=== PATIENT | male | born 1970 | race Caucasian/White ===

== ENCOUNTER 2024-02-15 11:24 | Outpatient (AMB) | payer OTHER, SELFPAY ==
--- NOTE | 2024-02-15 11:25 | A.OFFVIS_ITS ---
Vital Signs 02/15/24 11:27 Height 6 ft 1 in Weight 250 lb BMI 33.0 BP 152/82 H Blood Pressure Location Lt brachial Position Sitting Respiration 16 Pulse 102 H Pulse Source Pulse Oximeter Pulse Oximetry (%) 98 Oxygen Delivery Method Room Air Intake Visit Reasons: Back pain radiating down to his leg Allergies environmental allergies Allergy (Verified 02/15/24 19:07) Unknown Seasonal Allergies Allergy (Verified 02/15/24 19:07) Unknown bee stings Allergy (Unknown, Uncoded 02/15/24 19:07) Unknown Medication List - Last Reconciled 02/15/24 by NATALEE Oneill acetaminophen 1,000 mg PO Q8H PRN bupropion HCl SR (Wellbutrin SR) 150 mg PO BID cyclobenzaprine 10 mg PO TID dextroamphetamine-amphetamine 20 mg (Adderall) 20 mg PO DAILY diclofenac sodium 50 mg PO Q12H PRN diclofenac sodium 1% (Arthritis Pain (diclofenac)) 2 grams topical QID trazodone 200 mg PO BEDTIME HPI HPI Back pain radiating down to his leg: Details: Patient is a pleasant 53-year-old male presents today for initial evaluation of low back pain with radiation into left lower extremity for 2 months. He reports extensive surgical history for left Achilles tendon tear reconstructive and revision surgeries x4 through [facility]. Most recent surgery was on 05/16/23 left achilles surgery with toe tendon transfer. There is active Worker's comp case since 09/20/21 for this through his Orthopedic provider. Patient reports since left ankle surgeries, he developed uneven gait which he believes contributes to his current symptoms. Reports chronic left lower leg neuralgia with parasthesias since ankle surgeries. Back pain radiates into his left buttock, thigh, groin, posterior thigh and knee with associated numbness and tingling. Reports intermittent numbness and tingling. Pain increases with walking, weight bearing, changing positions from seated to standing, prolonged sitting, climbing stairs, movements, bending, and cold weather changes. Per referral notes, 2 views of lumbosacral spine reveals spondylosis and multilevel anterior osteophytes along the vertebrae. No spondylolisthesis. T12-L1 osteoarthritis. Patient has tried and failed extensive medical management to control his symptoms and improve functioning including gabapentin, oxycodone, tramadol, meloxicam, Voltaren gel, Medrol Oneil, Lyrica, and Flexeril. He was referred for formal physical therapy for lumbar stabilization program but was unable to start due to significant pain. Pain is constant and is most severe at noon, rated at 8/10 and least severe at 0800, rated at 3/10. Patient reports tramadol has been effective last year and allowed him to be less symptomatic and more functional. Pain interferes with his daily activities, ADLs, mobility, sleeping, work, mood, social interactions and quality of life. He has been facing challenges in obtaining medical management for his chronic pain syndromes. Patient is interested in medical and interventional treatments for low back pain and potentially for chronic left ankle pain with previous surgeries. 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 Denies any fever or chills, abdominal or groin pain, weakness, bladder or bowel dysfunction, or saddle anesthesia. Onset: 09/27/21 Location: Lower back pain radiating into left lower extremity Duration: Chronic pain worsening for past 2.5 months Characteristics of symptom or complaint: Throbbing, stabbing, sharp, burning, tingling, radiating, heavy, fearful Aggravating or associated factors: Movements, uneven gait, pronation, ADLs, walking, standing, bending Relieving factors: Rest, changing positions, elevation, medications, heat/cold applications Treatment: PT-attempted, unable due to pain, left ankle surgerie x4, knee scooter [facility] Medical History (Updated 02/15/24 @ 20:12 by NATALEE Oneill) Chronic headaches Degenerative disc disease, cervical PTSD (post-traumatic stress disorder) Tobacco dependence with current use Anxiety Depression Achilles tendon tear ADHD Chronic pain syndrome Surgical History (Updated 02/15/24 @ 19:59 by NATALEE Oneill) H/O Achilles tendon repair Social History (Updated 02/15/24 @ 19:28 by NATALEE Oneill) Household Members: Spouse and Family Housing: House Alcohol intake: former Year quit: 2016 Patient Tobacco Use Status: Current everyday Tobacco user Tobacco use type: Cigarette Cigarettes Per Day: 4 Substance Use Type: Marijuana Current occupation: RN-[employer] Review of Systems Const All systems reviewed & are unremarkable except as noted in HPI and below Physical Exam Vital Signs: Last Vital Signs Pulse 102 H 02/15/24 11:27 Resp 16 02/15/24 11:27 BP 152/82 H 02/15/24 11:27 Pulse Ox 98 02/15/24 11:27 Oxygen Delivery Method Room Air 02/15/24 11:27 BMI result Body Mass Index 33.0 General: Appears afebrile. Alert and oriented. Mood and affect appropriate. Follows and participates in conversation appropriately. Respiratory effort is unlabored. No cough. Able to transition from sit to stand unassisted. Ambulates with right normal heel strike and toe off. Not able on the left due to previous left Achilles tendon surgeries. General: Yes no CVA tenderness Back/Spine/Pelvis Other: Limited lumbar ROM due to pain. Mildly antalgic gait, with slight limping. Demonstrates 5/5 right and 4/5 left strength of quadriceps bilaterally as well as flexion/dorsiflexion of bilateral feet against resistance. 2+ pedal pulses bilaterally. Straight leg rise with dorsiflexion positive on the left. +1 patellar and +1 right achilles reflexes, not tested on the left. Facet loading test positive bilaterally. Christiano sign, Edgar?s and Stinchfield tests are positive on the left. No groin pain with I/E hip rotations. Mild TTP to left GTB. Valsalva maneuver negative. Back: no CVA tenderness Cervical Spine: cervical ROM normal, cervical muscular tenderness and No Cervical spine tenderness Thoracic/Lumbar Spine: thoracic and lumbar spine normal to inspection, Lasegue's sign positive on the left and diffuse, pain with thoraco-lumbar ROM, thoraco- lumbar ROM limited, No thoracic spinal tenderness and lumbar spinal tenderness (L4-S1) Pelvis: buttock tenderness on the left Sacroiliac joints: on the right nontender and on the left Extrem General: Yes capillary refill normal, Yes no clubbing, cyanosis or edema and Yes no calf tenderness Left lower extremity: ankle (Well healed scar posterior ankle up to proximal left calf) Results Reviewed Results Reviewed: No imaging reports are available for review. Assessment & Plan Assessment & Plan (1) Chronic pain syndrome: Code(s): G89.4 - Chronic pain syndrome Category: Medical (2) Left lumbar radiculopathy: Code(s): M54.16 - Radiculopathy, lumbar region Category: Medical (3) Low back pain: Code(s): M54.50 - Low back pain, unspecified Category: Medical (4) Lumbar spondylosis: Code(s): M47.816 - Spondylosis without myelopathy or radiculopathy, lumbar region Category: Medical Plan Medical release request sent to [facility] for most recent lumbar spine xray and MRI imaging reports. Discussed interventional treatments for low back pain with left sided radiculopathy, including neuromodulation, SCS vs ITDD trial/implants, diagnostic vs therapeutic injections, Sprint PNS trial and RFA procedures. Informational pamphlets provided to patient. Recommend to restart formal PT and establish home exercise program. Script was provided by [facility]. On evaluation, it was determined that there was a continued need for palliative chronic opioid prescribing. Risks and benefits were discussed with the patient. He believes he was more functional and less symptomatic on tramadol once-twice daily as needed which he was receiving for past 2 years after extensive left achilles tendon repairs. MassPAT was reviewed and is consistent with his history. He also tried oxycodone after left ankle surgeries in the past and notes this has been helpful as well. PHQ-9 SCORE: 13 OPIOID RISK STRATIFICATION SURVEY SCORE: 23 moderate risk Patient will follow up in two weeks for a UDS review and to thoroughly review/sign contracts. He agreed to have the UDS performed immediately after this appointment. Patient is aware that this office can not prescribe until the UDS is reviewed and contracts are signed. Patient admitted to utilizing cannabis edibles from local dispensary for sleep and pain. All questions were answered and he is agreeable to the plan. Follow up for imaging/UDS review and sooner as needed. Coding Level of Care Code New Pt Level 4 (69918) Complex EM visit Add On G2211 Diagnoses Chronic pain syndrome G89.4 Left lumbar radiculopathy M54.16 Low back pain M54.50 Lumbar spondylosis M47.816
[2024-02-15 11:27] VITALS: BP 152/82; PULSE 102; RESP 16; O2SAT 98; BMI 33.0
--- OUTSIDE RECORDS SUMMARY | 2024-02-15 12:14 | XMS_ITS ---
Author Organization [facility], Address [address] [address] Care Team Providers Care Poultry Hanger Name Role Phone Shaila Harkins Unavailable [phone] ALLERGIES, ADVERSE REACTIONS, ALERTS Substance Code Code System Type Reaction Severity Status Start Date End Date Bee Sting RxNorm Other allergy () 0 MEDICATIONS Medication Code Code System Start Date Stop Date Route Dosage Directions Fill Instructions clonidine 0 RxNorm transdermal naltrexone 0 RxNorm oral Wellbutrin SR 0 RxNorm oral Tamiflu 538790 RxNorm 4 oral 1 benzonatate 890271 RxNorm 4 oral 1 gabapentin RxNorm 4 1 oxycodone HCl RxNorm 05/25/19 24 1 PROBLEMS Problem Name Code Code System Start Date End Date Stat us Other specified disorders of bone density and structure, unspecified site 421444428 [facility] Active Essential (primary) hypertension 41480120 [facility] Active Alcohol dependence 12803495 [facility] A ctive Acute cough 23901633 [facility] 06/07/2023 Active Fever, unspecified 898686276 [facility] 06/07/2023 A ctive Myalgia, other site 64675393 [facility] 06/07/2023 Active Influenza due to other ident ified influenza virus with other respiratory manifestations 38663153 [facility] 06/07/2023 A ctive ENCOUNTERS Encounter Diagnosis Code Code System Date Stat us Acute cough 14045416 [facility] 06/07/2023 Active Fever, unspecified 213143365 [facility] 06/07/2023 Active Myalgia, other site 08678238 [facility] 06/07/2023 Activ e Influenza due to other ident ified influenza virus with other respiratory manifestations 99083713 [facility] 2023 Active IMMUNIZATIONS * None VITAL SIGNS Code Code System Vitals Name Date Value and Un its 8462-4 [facility] Blood Pressure-Diastolic 06/07/2023 81 mmHg 8480-6 [facility] Blood Pressure-Systolic 06/07/2023 1 28 mmHg 8867-4 [facility] Heart Rate 06/07/2023 105 /min 9279-1 [facility] Respiratory Rate 06/07/2023 21 /min 8310-5 [facility] Body Temperature 06/07/2023 101.7 F 93109-3 [facility] Oxygen Saturation 06/07/2023 98 % SOCIAL HISTORY * None PROCEDURES * None RESULTS Test Code Code System Description Result Value Date Ref erence Range [facility] Strep A Not Detected 06/07/2023 Not Det ected [facility] SARS-CoV-2 Not Detected 06/07/2023 Not De tected [facility] Flu A Detected 06/07/2023 Not Detect ed [facility] Flu B Not Detected 06/07/2023 Not Det ected MEDICAL EQUIPMENT * Patient has no history of implantable devices ASSESSMENT * None TREATMENT PLAN Type Description Date MEDICATION Take 100 mg capsule 06/07/2023 MEDICATION Take 75 mg capsule 06/07/2023 APPOINTMENT If not feeling markos r in 3 day(s), please see your primary care physician. If you do not have a primary care physician, please return to this clinic. 06/07/2023 Labs Tests Test Name Code Code System Date Maryuri/Cepheid Strep A, DNA, Amplified Probe PCR 57204 CPT 06/07/2023 Maryuri/Cepheid SARS-CoV-2 & Fl u A/B Multiplex Assay, Amplified Probe Molecular RT-PCR / NAAT 24236 CPT 06/07/2023 GOALS * None HEALTH CONCERNS * No Health Concerns FUNCTIONAL AND COGNITIVE STATUS * None CONSULTATION NOTES * None DISCHARGE SUMMARY NOTES * None HISTORY AND PHYSICAL NOTES * None IMAGING NOTES * None LABORATORY REPORT NARRATIVE NOTES * None PATHOLOGY REPORT NARRATIVE NOTES * None PROGRESS NOTES * None
== END 2024-02-15 12:06 | disposition home or self-care (01) ==
PROVIDERS: PCP Internal Medicine; Visit Provider Nurse Practitioner Family
DX: G89.4 Chronic pain syndrome (principal); M54.16 Radiculopathy, lumbar region; M54.50 Low back pain, unspecified; M47.816 Spondylosis without myelopathy or radiculopathy, lumbar region
CPT/HCPCS: 99204